=== PATIENT | female | born 1950 | race Caucasian/White ===

== ENCOUNTER 2017-08-17 21:20 | Emergency (ER) | payer MEDICARE ==
[2017-08-17] MEDS ORDERED: predniSONE 20 MG TAB ONE (21:39)
== END 2017-08-17 21:43 | disposition home or self-care (01) ==
LOC: SCSER 21:20
DX: L25.9 Unspecified contact dermatitis, unspecified cause (principal); E03.9 Hypothyroidism, unspecified
CPT/HCPCS: 99282; J7506

== ENCOUNTER 2019-05-04 14:25 | Outpatient (CLI) | payer MEDICARE ==
--- NOTE | 2019-05-04 15:04 | ULT ---
EXAM: Right lower extremity venous Doppler HISTORY: Painless right lower leg edema for 3 weeks. FINDINGS: Grayscale, color-flow, Doppler evaluation, spectral analysis of the right lower extremity venous stru ctures is performed with 2-D imaging. The right common femoral, superficial femoral, popliteal, posterior tibial, proximal greater saphenous and profunda femoral veins are imaged. There is normal luminal compressibility, flow, and augmentation in the visualized deep venous structu res of the right lower extremity. Mildly prominent nonspecific right inguinal lymph node is present measuring 4.3 cm x 1 cm x 1.7 cm. IMPRESSION: 1. No evidence of a deep vein thrombosis in the visualized deep venous structures right lower extremi ty. 2. Nonspecific mildly prominent right inguinal lymph node.
== END 2019-05-04 14:26 | disposition home or self-care (01) ==
LOC: ULT 14:25
PROVIDERS: ATTEND Internal Medicine
DX: R60.0 Localized edema (principal)
CPT/HCPCS: 36415; 84443

== ENCOUNTER 2019-08-17 13:43 | Outpatient (CLI) | payer MEDICARE ==
--- NOTE | 2019-08-17 15:09 | BD ---
DEXA BONE DENSITY STUDY: Date: 08/17/19 HISTORY: Postmenopausal screening. FINDINGS: Right Femoral Neck: 0.769 T-Score: -0.7 Total Femur: 0.937 T-Score: 0.0 Left Femoral Neck: 0.742 T-Score: -1.0 Total Femur: 0.951 T-Score: 0.1 IMPRESSION: Calculated bone mineral density meets WHO criteria for normal. POS: OFF
--- NOTE | 2019-09-14 14:35 | MMO ---
Bilateral MAMMO Bilat Screen [facility]. CLINICAL HISTORY: Patient is 69 years old and is seen for screening. The patient has no family history of breast cancer. The patient has no personal history of cancer. VIEWS: The views performed were: bilateral craniocaudal with tomosynthesis and bilateral mediolateral oblique with tomosynthesis. This study has been interpreted with the assistance of computer-aided detection. MAMMOGRAM FINDINGS: There are scattered fibroglandular densities. There are benign appearing calcifications seen in both breasts. No prior films were available for comparison. There are no suspicious masses, suspicious calcifications, or areas of architectural distortion. IMPRESSION: THERE IS NO MAMMOGRAPHIC EVIDENCE OF MALIGNANCY. A ROUTINE FOLLOW-UP MAMMOGRAM IN 1 YEAR IS RECOMMENDED. THE RESULTS OF THIS EXAM WERE SENT TO THE PATIENT. ACR BI-RADS Category 2 - Benign finding MAMMOGRAPHY NOTE: 1. A negative mammogram report should not delay a biopsy if a dominant of clinically suspicious mass is present. 2. Approximately 10% to 15% of breast cancers are not detected by mammography. 3. Adenosis and dense breasts may obscure an underlying neoplasm. Reported by: JEANMARIE ROJAS MD Electonically Signed: [id number]
== END 2019-08-17 13:44 | disposition home or self-care (01) ==
LOC: BICMAMMO 13:43
PROVIDERS: ATTEND Internal Medicine
DX: Z12.31 Encounter for screening mammogram for malignant neoplasm of breast (principal); Z13.820 Encounter for screening for osteoporosis; Z78.0 Asymptomatic menopausal state
CPT/HCPCS: 77063; 77067; 77080

== ENCOUNTER 2019-12-13 16:16 | Inpatient (IN) | payer MEDICARE ==
[2019-12-13 16:47] LABS: #Basophils 0.1 thou/uL (0.0-0.2); #Eosinphils 0.6 thou/uL (0.0-0.7); #Lymphocytes 2.3 thou/uL (1.20-3.40); #Monocytes 0.6 thou/uL (0.11-0.59); #Neutrophils 5.5 thou/uL (1.40-6.50); %Basophils 0.6 % (0.0-1.0); %Eosinophils 6.8 % (0.0-10.0); %Lymphocytes 25.1 % (21.0-51.0); %Monocytes 6.3 % (0.0-10.0); %Neutrophils 61.2 % (42.0-75.0); Hemoglobin 14.5 g/dL (12.0-16.0); Mean Corpuscular HGB CONC 34.6 g/dL (32.0-36.0); Mean Corpuscular Volume 89.4 fL (78.0-98.0); Mean Platelet Volume 7.9 fL (7.4-10.4); Platelet Count 168 thou/uL (130-400); RBC Distribution Width 11.7 % (11.5-14.5); Red Blood Cell (RBC) Count 4.69 mill/uL (4.20-5.40)
--- NOTE | 2019-12-13 17:05 | RAD ---
EXAM: CHEST ONE VIEW HISTORY: Chest pain with left arm numbness. COMPARISON: None FINDINGS: The cardiac silhouette and pulmonary vasculature is within normal limits. There is mild elevation rig ht hemidiaphragm. Lungs are clear. Right glenohumeral prosthesis is noted. Postsurgical changes lower cervical spine are seen. IMPRESSION: No acute cardiopulmonary process.
[2019-12-13] MEDS ORDERED: Aspirin Chewable 81 MG TAB ONE (17:14)
[2019-12-13] MEDS ORDERED: Nitroglycerin 2% Ointment 1 INCH/1 GM Packet ONE (17:14)
[2019-12-13 17:22] LABS: ALT (SGPT) 13 U/L (8-55); AST (SGOT) 17 U/L (5-34); Albumin 4.3 g/dL (3.4-4.8); Alkaline Phosphatase 130 U/L (40-110); Anion Gap 12 mmol/L (10-20); BUN (Urea Nitrogen) 8 mg/dL (9.8-20.1); Bilirubin, Total 0.5 mg/dL (0.2-1.2); Calc. Creatinine Clearance 0 mL/min (70-130); Calcium 9.5 mg/dL (7.8-10.44); Carbon Dioxide 30 mmol/L (23-31); Chloride 103 mmol/L (98-107); Estimated GFR-MDRD 69; Globulin 3.1 g/dL (2.4-3.5); Glucose 172 mg/dL (80-115); Potassium 3.7 mmol/L (3.5-5.1); Protein, Total 7.4 g/dL (6.0-8.3); Sodium 141 mmol/L (136-145)
[2019-12-13] MEDS ORDERED: Acetaminophen 650 MG Suppository PR PRN (19:58)
[2019-12-13] MEDS ORDERED: Nitroglycerin 0.4 MG TAB (25 Tab Bottle) PO PRN (20:01)
[2019-12-13 20:02] LABS: Troponin I 0.411 ng/mL (< 0.028)
[2019-12-13] MEDS ORDERED: Enoxaparin Sodium 60 MG/0.6 ML SYRINGE ONE (20:40)
[2019-12-13] MEDS ORDERED: Enoxaparin Sodium 80 MG/0.8 ML SYRINGE ONE (20:41)
[2019-12-13] MEDS ORDERED: Dextrose 5% in Water 1,000 ML IV PRN (20:45)
[2019-12-13] MEDS ORDERED: Dextrose 50% Abboject 50 ML SYRINGE SLOW IVP PRN (20:45)
[2019-12-13] MEDS ORDERED: HumaLOG 300 UNITS/3 ML VIAL SC PRN ×2 (20:45)
[2019-12-13] MEDS ORDERED: Dextrose 5 %-0.45 % NaCl 1,000 ML IV SCH (21:00)
[2019-12-13] MEDS: Enoxaparin Sodium 80 MG/0.8 ML SYRINGE SC SCH (22:34)
[2019-12-13] MEDS: Gabapentin 300 MG CAP PO SCH (22:35)
[2019-12-13] MEDS: Famotidine 20 MG TAB PO SCH (22:35)
[2019-12-13] MEDS: Morphine ER 30 MG TAB PO SCH (22:36)
[2019-12-13 23:20] LABS: CKMB 7.8 ng/mL (0-6.6)
[2019-12-14 05:17] LABS: #Eosinphils 0.5 thou/uL (0.0-0.7); #Lymphocytes 2.8 thou/uL (1.20-3.40); #Monocytes 0.6 thou/uL (0.11-0.59); #Neutrophils 5.3 thou/uL (1.40-6.50); %Basophils 0.5 % (0.0-1.0); %Eosinophils 5.5 % (0.0-10.0); %Lymphocytes 30.5 % (21.0-51.0); %Monocytes 6.6 % (0.0-10.0); Hemoglobin 12.3 g/dL (12.0-16.0); Mean Corpuscular HGB CONC 33.1 g/dL (32.0-36.0); Mean Corpuscular Hemoglobin 29.9 pg (27.0-31.0); Mean Corpuscular Volume 90.4 fL (78.0-98.0); Mean Platelet Volume 8.2 fL (7.4-10.4); Platelet Count 140 thou/uL (130-400); RBC Distribution Width 11.9 % (11.5-14.5); Red Blood Cell (RBC) Count 4.12 mill/uL (4.20-5.40); White Blood Cell (WBC) Count 9.2 thou/uL (4.8-10.8)
[2019-12-14 05:25] LABS: Anion Gap 10 mmol/L (10-20); BUN (Urea Nitrogen) 10 mg/dL (9.8-20.1); Calc. Creatinine Clearance 88 mL/min (70-130); Calcium 8.8 mg/dL (7.8-10.44); Carbon Dioxide 26 mmol/L (23-31); Cardiac Risk 3.5 (Less than 4.5); Chloride 106 mmol/L (98-107); Cholesterol 134 mg/dl (< 200 Desired); Estimated GFR-MDRD 79; Glucose 174 mg/dL (80-115); HDL Cholesterol 38 mg/dL (>60 Neg Risk); LDL Cholesterol, Calculated 66 mg/dL; Potassium 3.8 mmol/L (3.5-5.1); Sodium 138 mmol/L (136-145); Triglycerides 148 mg/dL (Less than 150)
[2019-12-14] MEDS: Acetaminophen 325 MG TAB PO PRN ×3 (06:24→22:12)
--- NOTE | 2019-12-14 07:33 | HP ---
TIME OF ASSESSMENT: 1899. CHIEF COMPLAINT: Central chest pain. HISTORY OF PRESENT ILLNESS: Ms. Barbour is a 69-year-old woman, who presents to the emergency department today with complaints of chest pain that came on suddenly after lunch. The patient states she was sitting down when it started and states it was in the center of her chest and toward the left of her chest, also noting aching in her left arm. She is unable to state exactly how severe the pain was, but states was not the worse pain she has ever felt. States it was squeezing in nature. It lasted approximately 15 minutes and then recurred 20 minutes after that with the same amount of intensity and lasted for nearly 3 hours. The patient states she took two aspirins when it first came on. She states on arrival to the emergency department here, she was given medications, which helped to take the pain completely away. Per ED reports, she was given 81 mg of aspirin and Nitro-Bid 1 inch. An EKG was done showing normal sinus rhythm with no ST changes or T-wave abnormalities and a heart rate of 72. The second EKG done in the emergency department 7 minutes later showed again no ST changes or T-wave abnormalities and a normal sinus rhythm with a rate of 70. The patient had a chest x-ray done, which was unremarkable. She has had laboratory studies done demonstrating a normal troponin of 0.013. White count 9.0, hemoglobin 14.5, hematocrit 41.9, platelets 168, neutrophils 61.2%. Sodium 141, potassium 3.7, BUN 8, creatinine 0.82, GFR 69. LFTs unremarkable. Alkaline phosphatase was elevated at 130. At present, the patient denies having any pain. She reports seeing Dr. Dixon in July of her routine visit and had a normal stress test as well as a normal echo. Dr. Dixon had told her at that time that she did not need to come back to see him. The patient reports never experiencing chest pain in the past. PAST MEDICAL HISTORY: 1. Peripheral neuropathy. 2. Hypothyroidism. 3. Chronic back pain. 4. Diabetes mellitus. 5. Diabetic Charcot's foot. SOCIAL HISTORY: The patient lives with her . She is fully independent and mobilizes without any assistive devices. She denies any smoking history and reports rare alcohol intake. PAST SURGICAL HISTORY: 1. x2. 2. Back surgery x3. 3. Cholecystectomy. ALLERGIES: BACTRIM DS, ERYTHROMYCIN, LODINE. CURRENT MEDICATIONS: 1. Levothyroxine. 2. Morphine. 3. Metformin. 4. Gabapentin. PHYSICAL EXAMINATION: GENERAL: The patient appears well developed, well nourished, and is in no acute distress. VITAL SIGNS: Temperature 98.2, pulse 75, blood pressure 151/92, respirations 18, O2 saturation 98% on room air. HEENT: Normocephalic and atraumatic. Pupils are equal, round, reactive to light. Sclerae without icterus. Oropharynx is clear. NECK: Supple without lymphadenopathy. LUNGS: Clear to auscultation bilaterally without any wheezes, rales, or rhonchi. CARDIAC: Regular rate and rhythm. No reproducible chest wall tenderness with palpation. ABDOMEN: Soft, nontender, nondistended. Normoactive bowel sounds present. No guarding or rigidity. No renal angle tenderness. EXTREMITIES: No lower extremity swelling or edema. Peripheral pulses normal. INVESTIGATIONS: As mentioned above in HPI. IMPRESSION AND PLAN: Ms. Barbour is a pleasant 69-year-old woman, presenting with chest pain, who is being admitted for management of the followin. Acute coronary syndrome rule out. We will continue to trend troponins. EKG was unremarkable. The patient remains pain free at this present time. We will check TSH, lipid panel with morning labs. We will add on magnesium and BNP. Per ED, case has been discussed with Dr. Dixon who will try to take care for catheterization on ; therefore, we will keep her n.p.o. starting tomorrow at midnight. The patient will remain on continuous cardiac monitoring. 2. Diabetes mellitus. Monitor glucose and initiate insulin sliding scale. 3. Hypothyroidism. Resume home medications once verified. 4. Chronic back pain. Resume home medications once verified. 5. Peripheral neuropathy. Resume gabapentin once dose verified. 6. Gastrointestinal prophylaxis with famotidine. 7. Deep venous thrombosis prophylaxis. The patient is ambulatory. 8. Code status, full. Surrogate decision maker is her , Mr. Jonn Barbour. The patient's case was discussed with Dr. Saldaña, who agrees with plan of care as described above. ADDENDUM: Second troponin has come back, elevated at 0.411. I have notified Dr. Dixon, who will try to take care for catheterization tomorrow. We will keep her n.p.oIvy lindsay. Job ID: [id number]
[2019-12-14] MEDS: Aspirin 81 mg Enteric Coated Tablet PO SCH (08:20)
[2019-12-14] MEDS: Gabapentin 300 MG CAP PO SCH ×3 (08:20→20:35)
[2019-12-14] MEDS: Famotidine 20 MG TAB PO SCH ×2 (08:20→20:35)
[2019-12-14] MEDS: Morphine ER 30 MG TAB PO SCH ×2 (08:20→20:35)
[2019-12-14] MEDS ORDERED: Communication Order-Pharmacy FS SCH (08:45)
[2019-12-14] MEDS ORDERED: Iopamidol 370 76% 100 ML VIAL ONE (09:05)
[2019-12-14] MEDS ORDERED: Lidocaine 1% (PF) 30 ML VIAL ONE (11:31)
[2019-12-14] MEDS ORDERED: Heparin (Artline) 1,000 ML ONE (11:31)
[2019-12-14] MEDS ORDERED: Midazolam HCl 2 mg/2 ml Vial ONE (12:11)
[2019-12-14] MEDS ORDERED: Fentanyl 100 MCG/2 ML VIAL ONE (12:11)
[2019-12-14] MEDS ORDERED: Heparin 10,000 UNITS/1 ML VIAL ONE (12:48)
[2019-12-14] MEDS ORDERED: Sodium Chloride 0.9% 500 ML IVPB SCH (15:00)
[2019-12-14] MEDS ORDERED: TICAGRELOR 90 MG TABLET ONE (15:00)
--- NOTE | 2019-12-14 17:11 | PDOC.HOSPP ---
- Subjective Encounter Date: 12/14/19 Encounter Time: 15:00 Subjective: pt up in bed no complains - Objective Vital Signs & Weight: Vital Signs (12 hours) Temp Pulse Resp BP Pulse Ox 12/14/19 16:02 97.2 F L 73 20 99 12/14/19 13:47 97.9 F 67 16 166/71 H 97 12/14/19 11:46 96 12/14/19 11:30 97.9 F 63 14 161/71 H 96 12/14/19 08:00 98 Weight Admit Weight 167 lb 11.2 oz Weight 168 lb 11.2 oz I&O: 12/13/19 12/14/19 12/15/19 06:59 06:59 06:59 Intake Total 530 Balance 530 Result Diagrams: 12/14/19 04:30 12/14/19 04:31 Additional Labs: Accuchecks 12/14/19 12/13/19 11:23 21:53 POC Glucose 142 H 181 H Hospitalist ROS - Review of Systems Cardiovascular: denies: chest pain, palpitations, orthopnea, paroxysmal noc. dyspnea, edema, light headedness, other Gastrointestinal: denies: nausea, vomiting, abdominal pain, diarrhea, constipation, melena, hematochezia, other Genitourinary: denies: dysuria, frequency, incontinence, hematuria, retention, other - Medication Medications: Active Medications Generic Name Dose Route Start Last Admin Trade Name Freq PRN Reason Stop Dose Admin Acetaminophen 650 mg 12/13/19 19:58 12/14/19 16:09 Tylenol PO 650 mg Q4H PRN Administration Headache/Fever/Mild Pain (1-3) Aspirin 81 mg 12/14/19 09:00 12/14/19 08:20 Ecotrin PO 81 mg DAILY HIGINIO Administration Famotidine 20 mg 12/13/19 21:00 12/14/19 08:20 Pepcid PO 20 mg BID HIGINIO Administration Gabapentin 300 mg 12/13/19 21:00 12/14/19 16:06 Neurontin PO 300 mg TID HIGINIO Administration Morphine Sulfate 30 mg 12/13/19 21:00 12/14/19 08:20 Ms Contin PO 30 mg Q12HR HIGINIO Administration - Exam Neck: negative: supple, symmetric, no JVD, no thyromegaly, no lymphadenopathy, no carotid bruit, JVD Heart: negative: RRR, no murmur, no gallops, no rubs, normal peripheral pulses, irregular, diminshed peripheral pulses, murmur present, II/IV, III/IV Respiratory: negative: CTAB, no wheezes, no rales, no ronchi, normal chest expansion, no tachypnea, normal percussion, rales, rhonchi, tachypneic, wheezes Gastrointestinal: negative: soft, non-tender, non-distended, normal bowel sounds , no palpable masses, no hepatomegaly, no splenomegaly, no bruit, no guarding, no rigidity, tender to palpation, distended, diminished bowl sounds, voluntary guarding Hosp A/P (1) NSTEMI (non-ST elevated myocardial infarction) Code(s): I21.4 - NON-ST ELEVATION (NSTEMI) MYOCARDIAL INFARCTION Status: Acute (2) HTN (hypertension) Code(s): I10 - ESSENTIAL (PRIMARY) HYPERTENSION Status: Acute (3) Diabetes Code(s): E11.9 - TYPE 2 DIABETES MELLITUS WITHOUT COMPLICATIONS Status: Acute - Plan pt underwent cardiac cath with angioplasty. will start her on brilinta. will hold metformin.
[2019-12-14] MEDS: Enoxaparin Sodium 80 MG/0.8 ML SYRINGE SC SCH (17:37)
--- NOTE | 2019-12-14 19:08 | CON ---
DATE OF CONSULTATION: 12/14/2019 REASON FOR CONSULTATION: Non-STEMI. HISTORY OF PRESENT ILLNESS: Ms. Barbour is a pleasant 69-year-old white female, very well known to myself, who comes to the hospital for chest pain. She had sudden onset of midsternal chest pain that radiated to the left arm. It lasted for about 3 hours. She decided to come in for evaluation. She states her pain was gone, but she had a lingering pressure, so she was admitted for rule out. First troponin was negative, but eventually it became positive. On my evaluation this morning, this is a late entry. She continued to have chest tightness. No pain though. Denies any shortness of breath. She did have a normal stress with an unremarkable echo just about 4 to 6 months ago. PAST MEDICAL HISTORY: 1. Peripheral neuropathy. 2. Hypothyroidism. 3. Chronic back pain. 4. Type 2 diabetes. 5. Charcot foot. SOCIAL HISTORY: The patient lives with her . No alcohol, tobacco, or drugs. She is a retired nurse. PAST SURGICAL HISTORY: 1. x2. 2. Back surgery x3. 3. Cholecystectomy. ALLERGIES: BACTRIM DS, ERYTHROMYCIN, AND LODINE. CURRENT OUTPATIENT MEDICATIONS: Include: 1. Metformin 500 mg q.p.m. 2. Singulair. 3. Tradjenta 5 mg a day. 4. Morphine IR tablet 30 daily p.r.n. 5. Gabapentin 200 mg p.o. t.i.d. 6. Morphine ER. 7. Ms Contin 60 mg b.i.d. 8. Levothyroxine 50 mcg a day. 9. Brilinta 90 mg p.o. b.i.d. REVIEW OF SYSTEMS: A 12-point review of systems was done and was all negative unless stated in the history of present illness. PHYSICAL EXAMINATION: VITAL SIGNS: Temperature 97.2, pulse 73, respiratory rate 20, saturating 99% on room air, and blood pressure 161/71. GENERAL: Awake, alert, and oriented x3, in no distress. HEENT: Normocephalic and atraumatic. NECK: Supple. LUNGS: Clear. CARDIOVASCULAR: S1 and S2. No S3 or S4. No murmurs or rubs. ABDOMEN: Soft. Positive bowel sounds. EXTREMITIES: No edema. SKIN: Warm and dry. LABORATORY DATA: Reviewed. CBC is unremarkable. Chemistries were unremarkable. Troponin went up to 0.9 with a CK-MB of 7.8, otherwise normal GFR. TSH was normal. LDL was 66. EKG was reviewed. ASSESSMENT: 1. Iok-[id number] myocardial infarction. 2. Type 2 diabetes. 3. Hypertension. PLAN: We spoke at length with the risks and benefits of heart catheterization, which is what I would recommend to proceed at this time. The risks included, but not limited to stroke, MA, , bleeding, need for blood transfusion, limb loss, organ loss. She understands, verbalized understanding of this and agrees to proceed. We have further recommendations per results of coronary angiogram. Job ID: [id number]
[2019-12-14] MEDS ORDERED: hydrALAZINE 20 MG/ML VIAL SLOW IVP SCH (19:45)
[2019-12-14] MEDS: Atorvastatin Calcium 10 MG TAB PO SCH (20:35)
[2019-12-14] MEDS: TICAGRELOR 90 MG TABLET PO SCH (20:36)
--- NOTE | 2019-12-14 22:09 | PDOC.EVN ---
Event Note - Event Note Event Note: Notified by RN, patient with elevated BP and complaining of SOB. Given Hydralazine 2 hours ago, BP initially improved and now elevated again to Patient seen & examined. She states she had one brief episode of palpitations. Reports occasional "Tightness in my diaphragm" area that makes it difficult for her to take a full breath. Has not had any tachypnea, no cough/hemoptysis. Has been walking today without difficulty. Denies any chest pain. At present she does not feel this tightness and is able to take full breaths without discomfort. Lungs are clear. No abdominal pain/tenderness. Abdomen is soft. RN discussed with Dr. Dixon who advised Clonidine 0.1 mg PO x 1, EKG and CXR. I have placed these orders. Will also request continuous O2 sat monitoring.
[2019-12-14] MEDS ORDERED: cloNIDine 0.1 MG TAB PO SCH (22:15)
--- NOTE | 2019-12-14 22:31 | RAD ---
XR Chest Pa Lat STANDARD History: Shortness of breath Comparison: Radiograph December 13, 2019 Findings: Lungs are clear. No pneumothorax or effusion. Cardiac silhouette and mediastinal contours a re within normal limits. Right shoulder arthroplasty. Left rotator cuff insufficiency. Impression: No acute intrathoracic abnormality.
[2019-12-15] MEDS: Levothyroxine Sodium 50 MCG TAB PO SCH (06:16)
[2019-12-15] MEDS: Famotidine 20 MG TAB PO SCH ×2 (08:20→20:35)
[2019-12-15] MEDS: Lisinopril 2.5 MG TAB PO SCH (08:21)
[2019-12-15] MEDS: Morphine ER 30 MG TAB PO SCH ×2 (08:21→20:35)
[2019-12-15] MEDS: Gabapentin 300 MG CAP PO SCH ×3 (08:21→20:37)
[2019-12-15] MEDS: TICAGRELOR 90 MG TABLET PO SCH ×2 (08:21→20:37)
[2019-12-15] MEDS: Aspirin 81 mg Enteric Coated Tablet PO SCH (08:21)
[2019-12-15] MEDS: Carvedilol 3.125 MG TAB PO SCH ×2 (08:21→17:09)
[2019-12-15 11:22] VITALS: BMI 30.4
--- NOTE | 2019-12-15 16:23 | PDOC.CPN ---
- Subjective Date: 12/15/19 Time: 16:22 Interval history: She is doing well. No more chest pain. - Review of Systems General: denies: fever/chills, weight/appetite/sleep changes, night sweats, fatigue Respiratory: denies: cough, congestion, shortness of breath, exercise intolerance Cardiovascular: denies: chest pain, palpitation, edema, paroxysmal nocturnal dyspnea, orthopnea Gastrointestinal: denies: nausea, vomiting, diarrhea, constipation, abd pain, GI bleeding Musculoskeletal: denies: pain, tenderness, stiffness, swelling, arthritis/ arthralgias Neurological: denies: numbness, syncope, seizure, weakness - Objective Allergies/Adverse Reactions: Allergies Allergy/AdvReac Type Severity Reaction Status Date / Time aspartame Allergy Verified 12/14/19 16:42 [From Nutrasweet Aspartame] erythromycin base Allergy Verified 12/13/19 22:18 etodolac Allergy Verified 12/13/19 22:18 sulfamethoxazole Allergy Verified 12/13/19 22:18 [From Bactrim] trimethoprim [From Bactrim] Allergy Verified 12/13/19 22:18 Visit Medications: Current Medications Acetaminophen (Tylenol) 650 mg PO Q4H PRN PRN Reason: Headache/Fever/Mild Pain (1-3) Last Admin: 12/14/19 22:12 Dose: 650 mg Acetaminophen (Tylenol) 650 mg DC Q4H PRN PRN Reason: Headache/Fever/Mild Pain (1-3) Aspirin (Ecotrin) 81 mg PO DAILY [facility] Last Admin: 12/15/19 08:21 Dose: 81 mg Atorvastatin Calcium (Lipitor) 10 mg PO HS [facility] Last Admin: 12/14/19 20:35 Dose: 10 mg Carvedilol (Coreg) 3.125 mg PO BID-[facility] Last Admin: 12/15/19 08:21 Dose: 3.125 mg Dextrose/Water (Dextrose 50%) 25 gm SLOW IVP PRN PRN PRN Reason: Hypoglycemia Famotidine (Pepcid) 20 mg PO BID [facility] Last Admin: 12/15/19 08:20 Dose: 20 mg Gabapentin (Neurontin) 300 mg PO TID [facility] Last Admin: 12/15/19 15:41 Dose: 300 mg Glucagon (Glucagon) 1 mg IM PRN PRN PRN Reason: Hypoglycemia Dextrose/Water (D5w) 1,000 mls @ 0 mls/hr IV .Q0M PRN PRN Reason: Hypoglycemia Levothyroxine Sodium (Synthroid) 50 mcg PO 0600 [facility] Last Admin: 12/15/19 06:16 Dose: 50 mcg Lisinopril (Zestril) 2.5 mg PO DAILY [facility] Last Admin: 12/15/19 08:21 Dose: 2.5 mg Morphine Sulfate (Ms Contin) 30 mg PO Q12HR [facility] Last Admin: 12/15/19 08:21 Dose: 30 mg Nitroglycerin (Nitrostat) 0.4 mg PO Q5MIN PRN PRN Reason: Chest Pain Sodium Chloride (Flush - Normal Saline) 10 ml IVF Q12HR PRN PRN Reason: Saline Flush Sodium Chloride (Flush - Normal Saline) 10 ml IVF PRN PRN PRN Reason: Saline Flush Ticagrelor (Brilinta) 90 mg PO BID [facility] Last Admin: 12/15/19 08:21 Dose: 90 mg Vital Signs & Weight: Vital Signs Temp Pulse Resp BP BP Pulse Ox 12/15/19 16:00 98.4 F 76 18 120/60 96 12/15/19 11:29 98.2 F 68 18 137/60 99 12/15/19 08:21 67 12/15/19 07:23 97.9 F 67 18 147/74 H 97 Admit Weight 167 lb 11.2 oz Weight 166 lb 12.8 oz - Physical Exam General: alert & oriented x3 HEENT: mucus membranes moist Neck: supple neck Cardiac: regular rate and rhythm Lungs: normal breath sounds Neuro: grossly intact Abdomen: active bowel sounds Extremities: no edema Skin: clear Musculoskeletal: no pain - Labs Result Diagrams: 12/14/19 04:30 12/14/19 04:31 Troponin/CKMB CK-MB (CK-2) 7.8 ng/mL (0-6.6) H* 12/13/19 22:20 Troponin I 0.942 ng/mL (< 0.028) H* 12/13/19 22:20 - Telemetry Sinus rhythms and dysrhythmias: sinus rhythm - Assessment/Plan Assessment/Plan: 1. NSTEMI 2. S/P balloon angioplasty of a large first septal running parallel to the LAD. 3. Type 2 DM 4. HTN PLAN: - Continue MARCEL for now. - Statin for life. - BB and ACEI. - Echo pending. - Home tomorrow if remains stable.
--- NOTE | 2019-12-15 16:41 | PDOC.HOSPP ---
- Subjective Encounter Date: 12/15/19 Encounter Time: 10:30 Subjective: pt up in bed no complains. - Objective Vital Signs & Weight: Vital Signs (12 hours) Temp Pulse Resp BP BP Pulse Ox 12/15/19 16:00 98.4 F 76 18 120/60 96 12/15/19 11:29 98.2 F 68 18 137/60 99 12/15/19 08:21 67 12/15/19 07:23 97.9 F 67 18 147/74 H 97 Weight Admit Weight 167 lb 11.2 oz Weight 166 lb 12.8 oz I&O: 12/14/19 12/15/19 12/16/19 06:59 06:59 06:59 Intake Total 530 480 Output Total 850 Balance 530 -370 Result Diagrams: 12/14/19 04:30 12/14/19 04:31 Additional Labs: Accuchecks 12/15/19 12/15/19 12/15/19 16:00 13:34 11:14 POC Glucose 149 H 168 H 230 H 12/15/19 12/14/19 12/14/19 06:21 20:40 18:12 POC Glucose 141 H 168 H 133 H Hospitalist ROS - Review of Systems Respiratory: denies: cough, dry, shortness of breath, hemoptysis, SOB with excertion, pleuritic pain, sputum, wheezing, other Cardiovascular: denies: chest pain, palpitations, orthopnea, paroxysmal noc. dyspnea, edema, light headedness, other Gastrointestinal: denies: nausea, vomiting, abdominal pain, diarrhea, constipation, melena, hematochezia, other Genitourinary: denies: dysuria, frequency, incontinence, hematuria, retention, other - Medication Medications: Active Medications Generic Name Dose Route Start Last Admin Trade Name Freq PRN Reason Stop Dose Admin Acetaminophen 650 mg 12/13/19 19:58 12/14/19 22:12 Tylenol PO 650 mg Q4H PRN Administration Headache/Fever/Mild Pain (1-3) Aspirin 81 mg 12/14/19 09:00 12/15/19 08:21 Ecotrin PO 81 mg DAILY HIGINIO Administration Atorvastatin Calcium 10 mg 12/14/19 21:00 12/14/19 20:35 Lipitor PO 10 mg HS HIGINIO Administration Carvedilol 3.125 mg 12/15/19 08:00 12/15/19 08:21 Coreg PO 3.125 mg BID-[facility] HIGINIO Administration Famotidine 20 mg 12/13/19 21:00 12/15/19 08:20 Pepcid PO 20 mg BID HIGINIO Administration Gabapentin 300 mg 12/13/19 21:00 12/15/19 15:41 Neurontin PO 300 mg TID HIGINIO Administration Levothyroxine Sodium 50 mcg 12/15/19 06:00 12/15/19 06:16 Synthroid PO 50 mcg 0600 HIGINIO Administration Lisinopril 2.5 mg 12/15/19 09:00 12/15/19 08:21 Zestril PO 2.5 mg DAILY HIGINIO Administration Morphine Sulfate 30 mg 12/13/19 21:00 12/15/19 08:21 Ms Contin PO 30 mg Q12HR HIGINIO Administration Ticagrelor 90 mg 12/14/19 21:00 12/15/19 08:21 Brilinta PO 90 mg BID HIGINIO Administration - Exam Neck: negative: supple, symmetric, no JVD, no thyromegaly, no lymphadenopathy, no carotid bruit, JVD Heart: negative: RRR, no murmur, no gallops, no rubs, normal peripheral pulses, irregular, diminshed peripheral pulses, murmur present, II/IV, III/IV Respiratory: negative: CTAB, no wheezes, no rales, no ronchi, normal chest expansion, no tachypnea, normal percussion, rales, rhonchi, tachypneic, wheezes Gastrointestinal: negative: soft, non-tender, non-distended, normal bowel sounds , no palpable masses, no hepatomegaly, no splenomegaly, no bruit, no guarding, no rigidity, tender to palpation, distended, diminished bowl sounds, voluntary guarding Hosp A/P (1) NSTEMI (non-ST elevated myocardial infarction) Code(s): I21.4 - NON-ST ELEVATION (NSTEMI) MYOCARDIAL INFARCTION Status: Acute (2) HTN (hypertension) Code(s): I10 - ESSENTIAL (PRIMARY) HYPERTENSION Status: Acute (3) Diabetes Code(s): E11.9 - TYPE 2 DIABETES MELLITUS WITHOUT COMPLICATIONS Status: Acute - Plan pt underwent cardiac cath with angioplasty. will start her on brilinta. will hold metformin. 2/6 pt had elevated bp last night and clonidine was given. pt to stay for 48hour post cath.
[2019-12-15] MEDS: Atorvastatin Calcium 10 MG TAB PO SCH (20:35)
[2019-12-16] MEDS: Levothyroxine Sodium 50 MCG TAB PO SCH (05:22)
[2019-12-16] MEDS: Lisinopril 2.5 MG TAB PO SCH (07:49)
[2019-12-16] MEDS: Carvedilol 3.125 MG TAB PO SCH (07:50)
[2019-12-16] MEDS: Famotidine 20 MG TAB PO SCH (07:50)
[2019-12-16] MEDS: TICAGRELOR 90 MG TABLET PO SCH (07:50)
[2019-12-16] MEDS: Gabapentin 300 MG CAP PO SCH (07:50)
[2019-12-16] MEDS: Morphine ER 30 MG TAB PO SCH (07:50)
[2019-12-16] MEDS: Aspirin 81 mg Enteric Coated Tablet PO SCH (07:51)
[2019-12-16 12:00] VITALS: BP 142/70; TEMP 97.5
--- NOTE | 2019-12-17 03:07 | DIS ---
DATE OF ADMISSION: 12/13/2019 DATE OF DISCHARGE: 12/16/2019 DISCHARGE DIAGNOSES: As of the followin. Hpe-[id number] elevation myocardial infarction. 2. Hypertension. 3. Diabetes. HOSPITAL COURSE: Patient is a pleasant 69-year-old female who initially presented to the hospital with chest pain. At this time, her troponins were trended which did indicate NSTEMI. She was put on subcu Lovenox, underwent a cardiac catheterization. She underwent a balloon angioplasty to the ostium of the septal detective chief with a 2.0 x 8 mm compliant balloon. Patient did have a large first septal detective chief which gives a large intramyocardial branch giving out several more septals, which is a little bit different than the normal anatomy. Given the area where the stenosis was, putting in a stent would cause collapse given that it was in between the myocardium. At this time, only angioplasty was done. Patient will go home with aspirin and Plavix. She was monitored for 48 hours. No events. She had a repeat echocardiogram which indicated an EF of 50% to 55%. with anteroseptal hypokinesis, mild dilated left atrium. Patient was seen by Cardiology who recommended the patient to follow up as an outpatient and patient to be discharged. She is currently symptoms-free. DISCHARGE MEDICATIONS: She will continue home 1. Aspirin 81 mg. 2. Plavix 75 mg. 3. Atorvastatin 10 mg. 4. Coreg 3.125 b.i.d. 5. Lisinopril 2.5 daily. 6. Levothyroxine 50 mcg daily. 7. Morphine 60 mg b.i.d. 8. Neurontin 300 mg t.i.d. 9. Tradjenta 5 mg q.a.m. 10. Singulair 10 mg daily p.r.n. 11. Also, Glucophage 500 mg p.o. daily. PHYSICAL EXAMINATION: VITAL SIGNS: Temperature 98.5, 63, 16, 98% on room air, and 135/67. GENERAL: She is awake, alert, and oriented x3. Does not appear in distress. CV: S1, S2 present. No murmurs, rubs, or gallops. Again, she will be discharged home. She will follow up with her primary and Cardiology. Job ID: [id number]
== END 2019-12-16 13:34 | disposition home or self-care (01) | DRG 251 ==
LOC: ERS 16:16 → INTOOBSV 18:19 → OBSVTOIN 18:19 → 2SW 18:19
PROVIDERS: ADMIT Emergency Medicine; ATTEND Emergency Medicine
PROC: 4A023N7 Measurement of Cardiac Sampling and Pressure, Left Heart, Percutaneous Approach (ICD-10-PCS; principal; 2019-12-14)
PROC: 02703ZZ Dilation of Coronary Artery, One Artery, Percutaneous Approach (ICD-10-PCS; 2019-12-14)
PROC: B2111ZZ Fluoroscopy of Multiple Coronary Arteries using Low Osmolar Contrast (ICD-10-PCS; 2019-12-14)
PROC: B2151ZZ Fluoroscopy of Left Heart using Low Osmolar Contrast (ICD-10-PCS; 2019-12-14)
DX: I21.4 Non-ST elevation (NSTEMI) myocardial infarction (principal); I10 Essential (primary) hypertension; E03.9 Hypothyroidism, unspecified; E11.42 Type 2 diabetes mellitus with diabetic polyneuropathy; M54.9 Dorsalgia, unspecified; G89.29 Other chronic pain; Z90.49 Acquired absence of other specified parts of digestive tract; Z98.890 Other specified postprocedural states; Z88.1 Allergy status to other antibiotic agents
CPT/HCPCS: 36415; 36416; 71045; 71046; 80048; 80053; 80061; 82553; 83735; 83880; 84443; 84484; 85025; 85347; 92920; 93005; 93010; 93306; 93458; 94760; 96372; 99152; 99153; C1725; C1760; C1769; J0360; J1644; J1650; J2001; J2250; J3010; Q9967

== ENCOUNTER 2020-03-09 12:30 | Outpatient (CLI) | payer MEDICARE ==
--- NOTE | 2020-03-09 13:13 | RAD ---
RADIOGRAPH LUMBAR SPINE 3 VIEWS: DATE: 03/09/2020 HISTORY: 69-year-old female with low back pain. COMPARISON: None FINDINGS: 5 lumbar-type vertebrae. Vertebral body heights are maintained. No spondylolisthesis or scoliosis. Cy lindrical metallic cages, 2 at each level, at L3-4 and L4-5. Laminectomy defect at L4-5 and possibly at L5-S1. Other than L3-4 and L4-5, no high-grade disc space narrowing. Endplate marginal os teophytes protruding anteriorly at L2-3. Probable ankylosis of facet joints from L3 through S1. Cluster of multiple surgical clips in the retroperitoneum anterior to mid and lower levels. IMPRESSION: 1. Status post laminectomies, posterior element fusion, and metallic Cage placement, at mid and lower levels. 2. At least mild degenerative disc changes at L2-3 and L5-S1.
--- NOTE | 2020-03-09 14:17 | MRI ---
MRI LUMBAR SPINE WITH AND WITHOUT CONTRAST: DATE: 03/09/2020 HISTORY: 69-year-old female with chronic low back pain COMPARISON: None TECHNIQUE: Multiple sequences obtained in axial and sagittal planes, pre and post IV injection of gadolinium-bas ed contrast agent. FINDINGS: 5 lumbar-type vertebrae. Vertebral body heights are maintained. Magnetic susceptibility artifact from metallic hardware within the L3-4 and L4-5 intervertebral disc spaces interferes with evaluation of bone marrow signal at L3, L4, and L5, especially the fat suppressed postcontrast images. No obviou s bone marrow signal abnormality identified on STIR sequence. No spondylolisthesis or high-grade scoliosis. No disc space narrowing other than L3-4 level. Conus medullaris terminates at approximatel y L1-2. There is no significant central spinal canal stenosis or significant neural foraminal stenosis at any level. Old decompressive laminectomy defects at L3-4 and L4-5. Successful ankylosis o f bilateral facet joints at those same levels. No evidence of impingement on nerve roots. Atrophy of bilateral posterior paraspinal muscles at lower lumbar spine and sacrum. IMPRESSION: 1. Multiple postsurgical changes, including status post laminectomies, bilateral posterior element on lay bone graft fusions (with successful ankylosis), and metallic interbody cage placement, at L3-4 and L4-5. 2. No significant central spinal canal stenosis, neural foraminal stenosis, or nerve root impingement at any level.
== END 2020-03-09 12:31 | disposition home or self-care (01) ==
LOC: SCSMRI 12:30
PROVIDERS: ATTEND Pain Medicine Pain Medicine
DX: M96.1 Postlaminectomy syndrome, not elsewhere classified (principal); M51.17 Intervertebral disc disorders with radiculopathy, lumbosacral region; G89.4 Chronic pain syndrome; M51.36 Other intervertebral disc degeneration, lumbar region; Z98.1 Arthrodesis status
CPT/HCPCS: 72100; 72158; 82565

== ENCOUNTER 2021-04-12 14:36 | Outpatient (CLI) | payer MEDICARE | END 2021-04-12 14:37 | disposition home or self-care (01) | LOC: BICMAMMO 14:36 | PROVIDERS: ATTEND Internal Medicine | DX: Z12.31 Encounter for screening mammogram for malignant neoplasm of breast (principal) | CPT/HCPCS: 77063; 77067 ==

== ENCOUNTER 2021-09-27 06:33 | Observation (INO) | payer MEDICARE ==
[2021-09-27] MEDS ORDERED: Nitroglycerin 2% Ointment 1 INCH/1 GM Packet ONE (06:59)
[2021-09-27 07:00] LABS: #Basophils 0.1 thou/uL (0.0-0.2); #Eosinphils 0.4 thou/uL (0.0-0.7); #Lymphocytes 2.5 thou/uL (1.20-3.40); #Monocytes 0.6 thou/uL (0.11-0.59); #Neutrophils 6.1 thou/uL (1.40-6.50); %Basophils 0.7 % (0.0-1.0); %Lymphocytes 25.6 % (21.0-51.0); %Monocytes 6.4 % (0.0-10.0); %Neutrophils 63.2 % (42.0-75.0); Hemoglobin 13.2 g/dL (12.0-16.0); Mean Corpuscular HGB CONC 34.6 g/dL (32.0-36.0); Mean Corpuscular Hemoglobin 32.1 pg (27.0-31.0); Mean Corpuscular Volume 92.7 fL (78.0-98.0); Platelet Count 140 thou/uL (130-400); RBC Distribution Width 12.8 % (11.5-14.5); Red Blood Cell (RBC) Count 4.13 mill/uL (4.20-5.40); White Blood Cell (WBC) Count 9.6 thou/uL (4.8-10.8)
[2021-09-27 07:26] LABS: ALT (SGPT) 12 U/L (8-55); AST (SGOT) 14 U/L (5-34); Albumin 3.7 g/dL (3.4-4.8); Alkaline Phosphatase 96 U/L (40-110); Anion Gap 10 mmol/L (10-20); BUN (Urea Nitrogen) 12 mg/dL (9.8-20.1); Bilirubin, Total 0.5 mg/dL (0.2-1.2); Calc. Creatinine Clearance 0 mL/min (70-130); Calcium 9.5 mg/dL (7.8-10.44); Carbon Dioxide 32 mmol/L (23-31); Chloride 97 mmol/L (98-107); Globulin 2.9 g/dL (2.4-3.5); Glucose 151 mg/dL (83-110); Lipase 8 U/L (8-78); Potassium 3.9 mmol/L (3.5-5.1); Protein, Total 6.6 g/dL (5.8-8.1); Sodium 135 mmol/L (136-145)
[2021-09-27] MEDS ORDERED: Morphine 4 MG/ML VIAL ONE (08:14)
[2021-09-27] MEDS ORDERED: Lidocaine Viscous Sol 2% 15 ml UD Cup ONE (08:36)
[2021-09-27] MEDS ORDERED: Mag-Al 1200 mg/1200 mg/30 ML UDCUP ONE (08:36)
[2021-09-27] MEDS ORDERED: Acetaminophen 325 MG TAB PO PRN (09:02)
[2021-09-27] MEDS ORDERED: Ondansetron ODT 4 MG TAB PO PRN (09:02)
[2021-09-27] MEDS ORDERED: Acetaminophen 650 MG Suppository PR PRN (09:02)
[2021-09-27] MEDS ORDERED: Ondansetron PF 4 MG/2 ML Vial IVP PRN (09:02)
[2021-09-27] MEDS ORDERED: Dextrose 5% in Water 1,000 ML IV PRN (09:14)
[2021-09-27] MEDS ORDERED: Dextrose 50% Abboject 50 ML SYRINGE SLOW IVP PRN (09:14)
[2021-09-27] MEDS ORDERED: Insulin Regular 300 UNITS/3 ML VIAL SC PRN ×2 (09:14)
[2021-09-27 14:51] VITALS: BMI 32.9
[2021-09-27] MEDS: Nitroglycerin 2% Ointment 1 INCH/1 GM Packet TOP SCH ×2 (15:06→21:27)
[2021-09-27 19:33] LABS: Troponin I Less than 0.010 ng/mL (< 0.028)
[2021-09-27 19:44] LABS: SARS-CoV-2 PCR by NAA Not Detected (NotDetected)
[2021-09-27] MEDS: Atorvastatin Calcium 10 MG TAB PO SCH (20:09)
[2021-09-27] MEDS: Gabapentin 300 MG CAP PO SCH (20:10)
[2021-09-28 05:05] LABS: #Eosinphils 0.3 thou/uL (0.0-0.7); #Lymphocytes 1.9 thou/uL (1.20-3.40); #Monocytes 0.5 thou/uL (0.11-0.59); #Neutrophils 4.5 thou/uL (1.40-6.50); %Basophils 0.4 % (0.0-1.0); %Eosinophils 4.3 % (0.0-10.0); %Lymphocytes 26.4 % (21.0-51.0); %Monocytes 6.8 % (0.0-10.0); %Neutrophils 62.1 % (42.0-75.0); Hemoglobin 12.6 g/dL (12.0-16.0); Mean Corpuscular HGB CONC 34.4 g/dL (32.0-36.0); Mean Corpuscular Volume 93.2 fL (78.0-98.0); Mean Platelet Volume 6.9 fL (7.4-10.4); Platelet Count 125 thou/uL (130-400); RBC Distribution Width 12.7 % (11.5-14.5); Red Blood Cell (RBC) Count 3.93 mill/uL (4.20-5.40); White Blood Cell (WBC) Count 7.2 thou/uL (4.8-10.8)
[2021-09-28 05:29] LABS: Anion Gap 8 mmol/L (10-20); BUN (Urea Nitrogen) 12 mg/dL (9.8-20.1); Calc. Creatinine Clearance 90 mL/min (70-130); Calcium 9.3 mg/dL (7.8-10.44); Carbon Dioxide 31 mmol/L (23-31); Cardiac Risk 3.3 (Less than 4.5); Chloride 104 mmol/L (98-107); Cholesterol 151 mg/dl (< 200 Desired); Glucose 120 mg/dL (83-110); HDL Cholesterol 46 mg/dL (>60 Neg Risk); LDL Cholesterol, Calculated 90 mg/dL; Sodium 139 mmol/L (136-145); Triglycerides 75 mg/dL (Less than 150)
[2021-09-28] MEDS: Nitroglycerin 2% Ointment 1 INCH/1 GM Packet TOP SCH (05:31)
[2021-09-28] MEDS: Levothyroxine Sodium 50 MCG TAB PO SCH (05:31)
[2021-09-28] MEDS: Aspirin Chewable 81 MG TAB PO SCH (07:56)
[2021-09-28] MEDS: Clopidogrel Bisulfate 75 MG TAB PO SCH (07:56)
[2021-09-28] MEDS: Carvedilol 3.125 MG TAB PO SCH ×2 (07:56→16:48)
[2021-09-28] MEDS: Gabapentin 300 MG CAP PO SCH ×3 (07:57→20:20)
[2021-09-28] MEDS ORDERED: Morphine 2 MG/ML VIAL SLOW IVP PRN (08:07)
[2021-09-28] MEDS: Morphine ER 30 MG TAB PO SCH ×2 (08:47→21:20)
[2021-09-28] MEDS ORDERED: FLU VACC QS2021-22(65YR UP)/PF 240 MCG/0.7 ML SYRINGE IM ONE (09:00)
[2021-09-28] MEDS: Senokot S 8.6-50 MG TAB PO SCH (20:20)
[2021-09-28] MEDS: Atorvastatin Calcium 10 MG TAB PO SCH (20:20)
[2021-09-29 04:41] LABS: #Eosinphils 0.4 thou/uL (0.0-0.7); #Lymphocytes 2.4 thou/uL (1.20-3.40); #Monocytes 0.8 thou/uL (0.11-0.59); #Neutrophils 6.5 thou/uL (1.40-6.50); %Basophils 0.3 % (0.0-1.0); %Eosinophils 3.9 % (0.0-10.0); %Lymphocytes 23.6 % (21.0-51.0); %Monocytes 8.1 % (0.0-10.0); Mean Corpuscular HGB CONC 33.3 g/dL (32.0-36.0); Mean Corpuscular Volume 93.1 fL (78.0-98.0); Mean Platelet Volume 7.2 fL (7.4-10.4); Platelet Count 136 thou/uL (130-400); RBC Distribution Width 12.7 % (11.5-14.5); White Blood Cell (WBC) Count 10.1 thou/uL (4.8-10.8)
[2021-09-29 04:56] LABS: Anion Gap 10 mmol/L (10-20); BUN (Urea Nitrogen) 16 mg/dL (9.8-20.1); Calc. Creatinine Clearance 78 mL/min (70-130); Calcium 9.8 mg/dL (7.8-10.44); Carbon Dioxide 32 mmol/L (23-31); Chloride 102 mmol/L (98-107); Glucose 140 mg/dL (83-110); Potassium 4.7 mmol/L (3.5-5.1); Sodium 139 mmol/L (136-145)
[2021-09-29] MEDS: Levothyroxine Sodium 50 MCG TAB PO SCH (05:25)
[2021-09-29] MEDS: Morphine ER 30 MG TAB PO SCH (08:06)
[2021-09-29] MEDS: Gabapentin 300 MG CAP PO SCH ×2 (08:09→11:42)
[2021-09-29 11:30] VITALS: BP 123/63; TEMP 97.9
[2021-09-29] MEDS: Clopidogrel Bisulfate 75 MG TAB PO SCH (11:42)
[2021-09-29] MEDS: Aspirin Chewable 81 MG TAB PO SCH (11:42)
[2021-09-29] MEDS: Carvedilol 3.125 MG TAB PO SCH (11:42)
[2021-09-29] MEDS: Senokot S 8.6-50 MG TAB PO SCH (11:43)
[2021-09-29] MEDS ORDERED: Regadenoson 0.4 MG/5 ML SYRINGE ONE (12:05)
== END 2021-09-29 13:58 | disposition home or self-care (01) ==
LOC: ERS 06:33 → ERHOLD 08:27 → 2SW 14:38
PROVIDERS: ADMIT Hospitalist; ATTEND Internal Medicine
DX: R07.89 Other chest pain (principal); I25.10 Atherosclerotic heart disease of native coronary artery without angina pectoris; E78.5 Hyperlipidemia, unspecified; I12.9 Hypertensive chronic kidney disease with stage 1 through stage 4 chronic kidney disease, or unspecified chronic kidney disease; E11.22 Type 2 diabetes mellitus with diabetic chronic kidney disease; N18.2 Chronic kidney disease, stage 2 (mild); G89.4 Chronic pain syndrome; E03.9 Hypothyroidism, unspecified; J45.20 Mild intermittent asthma, uncomplicated; I25.2 Old myocardial infarction; Z20.822 Contact with and (suspected) exposure to COVID-19; Z88.1 Allergy status to other antibiotic agents; Z88.2 Allergy status to sulfonamides; Z88.6 Allergy status to analgesic agent; Z91.02 Food additives allergy status; Z95.5 Presence of coronary angioplasty implant and graft; Z98.890 Other specified postprocedural states; Z79.84 Long term (current) use of oral hypoglycemic drugs; Z79.82 Long term (current) use of aspirin; Z79.02 Long term (current) use of antithrombotics/antiplatelets; Z79.891 Long term (current) use of opiate analgesic; Z79.899 Other long term (current) drug therapy; Z90.49 Acquired absence of other specified parts of digestive tract; Z90.710 Acquired absence of both cervix and uterus
CPT/HCPCS: 71045; 78452; 80048 ×2; 80053; 80061; 82962 ×3; 83690; 84484 ×2; 85025 ×3; 90662; 93005; 93017; 94760; 96374; 99285; A9500; G0008; U0003; U0005; 36415; 36416; 90471; G0378; J2270; J2785

== ENCOUNTER 2021-10-15 17:14 | Outpatient (CLI) | payer MEDICARE ==
[2021-10-15 17:47] LABS: #Basophils 0.1 10x3/uL (0.0-0.2); #Eosinphils 0.6 10x3/uL (0.0-0.5); #Monocytes 0.8 10x3/uL (0.0-1.1); #Neutrophils 7.2 10x3/uL (1.5-8.4); %Basophils 0.6 % (0.0-2.0); %Eosinophils 5.6 % (0.0-6.0); %Monocytes 6.9 % (0.0-10.0); %Neutrophils 64.5 % (40.0-75.0); Hemoglobin 13.2 g/dL (12.0-15.5); Mean Corpuscular HGB CONC 33.7 g/dL (32.0-36.0); Mean Corpuscular Hemoglobin 31.4 pg (27.0-33.0); Mean Corpuscular Volume 93.1 fl (81.6-98.3); Mean Platelet Volume 9.6 fl (7.4-10.4); Platelet Count 182 10x3/uL (150-450); RBC Distribution Width 13.6 % (11.5-14.5); Red Blood Cell (RBC) Count 4.21 10x6/uL (3.90-5.03); White Blood Cell (WBC) Count 11.2 10x3/uL (3.5-10.5)
[2021-10-15 17:58] LABS: ALT (SGPT) 12 U/L (8-55); AST (SGOT) 15 U/L (5-34); Albumin 4.3 g/dL (3.4-4.8); Alkaline Phosphatase 95 U/L (40-110); Anion Gap 12 mmol/L (10-20); BUN (Urea Nitrogen) 12 mg/dL (9.8-20.1); Bilirubin, Total 0.8 mg/dL (0.2-1.2); Calc. Creatinine Clearance 0 mL/min (70-130); Calcium 9.4 mg/dL (7.8-10.44); Carbon Dioxide 30 mmol/L (23-31); Chloride 103 mmol/L (98-107); Globulin 2.6 g/dL (2.4-3.5); Glucose 133 mg/dL (83-110); Potassium 4.6 mmol/L (3.5-5.1); Protein, Total 6.9 g/dL (5.8-8.1); Sodium 140 mmol/L (136-145)
[2021-10-16 11:27] LABS: SARS-CoV-2 PCR by NAA Not Detected (NotDetected)
== END 2021-10-15 17:15 | disposition home or self-care (01) ==
LOC: LABBT 17:14
PROVIDERS: ATTEND Internal Medicine Cardiovascular Disease
DX: Z01.812 Encounter for preprocedural laboratory examination (principal); R07.9 Chest pain, unspecified; Z20.822 Contact with and (suspected) exposure to COVID-19
CPT/HCPCS: 80053; 85025; U0003; U0005

== ENCOUNTER 2021-10-18 06:17 | Day surgery (SDC) | payer MEDICARE ==
[2021-10-17 11:21] VITALS: BMI 29.2
[2021-10-18 07:15] LABS: Cardiac Risk 2.8 (Less than 4.5)
[2021-10-18] MEDS ORDERED: Fentanyl 100 MCG/2 ML VIAL ONE (07:35)
[2021-10-18] MEDS ORDERED: Midazolam HCl 2 mg/2 ml Vial ONE (07:35)
[2021-10-18] MEDS ORDERED: Heparin 10,000 UNITS/ 10 ML VIAL ONE (08:19)
[2021-10-18] MEDS ORDERED: TICAGRELOR 90 MG TABLET ONE (08:46)
[2021-10-18] MEDS ORDERED: Iopamidol 370 76% 100 ML VIAL ONE (09:00)
[2021-10-18] MEDS ORDERED: Iopamidol 370 76% 50 ML VIAL FS ONE (09:00)
[2021-10-18] MEDS ORDERED: Morphine 4 MG/ML VIAL ONE (09:21)
== END 2021-10-18 14:26 | disposition home or self-care (01) ==
LOC: CCL 06:17
PROVIDERS: ATTEND Internal Medicine Cardiovascular Disease
PROC: 027034Z Dilation of Coronary Artery, One Artery with Drug-eluting Intraluminal Device, Percutaneous Approach (ICD-10-PCS; principal; 2021-10-18)
PROC: 4A023N7 Measurement of Cardiac Sampling and Pressure, Left Heart, Percutaneous Approach (ICD-10-PCS; 2021-10-18)
PROC: B2111ZZ Fluoroscopy of Multiple Coronary Arteries using Low Osmolar Contrast (ICD-10-PCS; 2021-10-18)
DX: R07.9 Chest pain, unspecified (principal); I25.10 Atherosclerotic heart disease of native coronary artery without angina pectoris; I25.2 Old myocardial infarction; I10 Essential (primary) hypertension; E11.610 Type 2 diabetes mellitus with diabetic neuropathic arthropathy; M79.7 Fibromyalgia; E03.9 Hypothyroidism, unspecified; E11.42 Type 2 diabetes mellitus with diabetic polyneuropathy; Z79.02 Long term (current) use of antithrombotics/antiplatelets; Z79.82 Long term (current) use of aspirin; Z79.84 Long term (current) use of oral hypoglycemic drugs; Z79.891 Long term (current) use of opiate analgesic; Z79.899 Other long term (current) drug therapy; Z88.1 Allergy status to other antibiotic agents; Z88.2 Allergy status to sulfonamides; Z88.6 Allergy status to analgesic agent; Z91.02 Food additives allergy status; Z91.048 Other nonmedicinal substance allergy status; Z98.1 Arthrodesis status
CPT/HCPCS: 36415; 80061; 85347; 92928; 93005; 93454; 99152; 99153; C1769; C9600; J1644; J2250; J2270; J3010; Q9967

== ENCOUNTER 2022-02-13 11:53 | Outpatient (CLI) | payer MEDICARE | END 2022-02-13 11:54 | disposition home or self-care (01) | LOC: SCSRAD 11:53 | PROVIDERS: ATTEND Nurse Practitioner Family | DX: M46.1 Sacroiliitis, not elsewhere classified (principal); M17.12 Unilateral primary osteoarthritis, left knee; M47.818 Spondylosis without myelopathy or radiculopathy, sacral and sacrococcygeal region | CPT/HCPCS: 72170 ==

== ENCOUNTER 2022-10-10 10:30 | Outpatient (CLI) | payer MEDICARE ==
[2022-10-10 11:50] LABS: #Basophils 0.1 10x3/uL (0.0-0.2); #Eosinphils 0.8 10x3/uL (0.0-0.5); #Monocytes 0.7 10x3/uL (0.0-1.1); #Neutrophils 6.5 10x3/uL (1.5-8.4); %Basophils 0.5 % (0.0-2.0); %Eosinophils 8.3 % (0.0-6.0); %Monocytes 7.3 % (0.0-10.0); %Neutrophils 65.6 % (40.0-75.0); Mean Corpuscular HGB CONC 34.4 g/dL (32.0-36.0); Mean Corpuscular Hemoglobin 30.7 pg (27.0-33.0); Mean Corpuscular Volume 89.2 fl (81.6-98.3); Mean Platelet Volume 9.5 fl (7.4-10.4); Platelet Count 167 10x3/uL (150-450); RBC Distribution Width 12.7 % (11.5-14.5); Red Blood Cell (RBC) Count 4.24 10x6/uL (3.90-5.03); White Blood Cell (WBC) Count 9.9 10x3/uL (3.5-10.5)
[2022-10-10 11:57] LABS: Prothrombin Time 10.9 sec (9.5-12.1)
[2022-10-10 12:01] LABS: Anion Gap 12 mmol/L (10-20); BUN (Urea Nitrogen) 9 mg/dL (9.8-20.1); Calc. Creatinine Clearance 0 mL/min (70-130); Carbon Dioxide 31 mmol/L (23-31); Chloride 99 mmol/L (98-107); Estimated GFR 82; Glucose 157 mg/dL (83-110); Potassium 3.9 mmol/L (3.5-5.1); Sodium 138 mmol/L (136-145)
[2022-10-10 12:14] LABS: Cholesterol 104 mg/dl (< 200 Desired); HDL Cholesterol 35 mg/dL (>60 Neg Risk); LDL Cholesterol, Calculated 45 mg/dL; Triglycerides 122 mg/dL (Less than 150)
== END 2022-10-10 10:31 | disposition home or self-care (01) ==
LOC: LABBT 10:30
PROVIDERS: ATTEND Orthopaedic Surgery
DX: Z01.818 Encounter for other preprocedural examination (principal); M17.12 Unilateral primary osteoarthritis, left knee
CPT/HCPCS: 80048; 80061; 85025; 85610; 87081; 93005; 93010

== ENCOUNTER 2022-10-14 06:44 | Observation (INO) | payer MEDICARE ==
[2022-10-13 12:09] VITALS: BMI 31.1
[2022-10-14] MEDS ORDERED: Tranexamic Acid 1,000 MG/10 ML VIAL ONE (07:55)
[2022-10-14] MEDS ORDERED: Vancomycin 1 GM/200 ML (FROZEN) BAG ONE (07:55)
[2022-10-14] MEDS ORDERED: Sodium Chloride 0.9% 200 ML ONE (07:55)
[2022-10-14] MEDS ORDERED: CEFAZOLIN 2 GM VIAL ONE (07:55)
[2022-10-14] MEDS ORDERED: Ropivacaine 0.5% HCl/PF (150 MG/30 ML VIAL) ONE (08:01)
[2022-10-14] MEDS ORDERED: Midazolam HCl 2 mg/2 ml Vial ONE (08:01)
[2022-10-14] MEDS ORDERED: FENTANYL 50 MCG/ML 1 ML VIAL ONE ×2 (08:01→15:11)
[2022-10-14 08:39] LABS: SARS-CoV-2 NAA Rapid Test Not Detected (NotDetected)
[2022-10-14] MEDS ORDERED: diphenhydrAMINE 25 MG CAP PO PRN (08:51)
[2022-10-14] MEDS ORDERED: Acetaminophen 325 MG TAB PO PRN (08:51)
[2022-10-14] MEDS ORDERED: Ondansetron PF 4 MG/2 ML Vial IVP PRN ×2 (08:51→11:00)
[2022-10-14] MEDS ORDERED: Promethazine HCl 25 MG/ML VIAL IM PRN ×2 (08:51→11:00)
[2022-10-14] MEDS ORDERED: HYDROcodone/Acetaminophen 10/325 mg Tablet PO PRN ×3 (08:51→11:00)
[2022-10-14] MEDS ORDERED: Zolpidem Tartrate 5 MG TAB PO PRN ×2 (08:51→11:00)
[2022-10-14] MEDS ORDERED: Albuterol 200 PUFF (6.7GM INHALER) INH PRN (08:52)
[2022-10-14] MEDS ORDERED: PROPOFOL 200 MG/20 ML VIAL ONE (09:27)
[2022-10-14] MEDS ORDERED: Ketorolac Tromethamine 30 MG/ML VIAL ONE (09:27)
[2022-10-14] MEDS ORDERED: Dexamethasone 20 MG/5 ML VIAL ONE (09:27)
[2022-10-14] MEDS ORDERED: Ondansetron PF 4 MG/2 ML Vial ONE (09:27)
[2022-10-14] MEDS ORDERED: fentaNYL PF 100 MCG/2 ML SYRINGE ONE ×3 (09:31→11:24)
[2022-10-14] MEDS ORDERED: Ropivacaine 0.2% 550 ML 550 ML NERVE BLCK SCH (10:45)
[2022-10-14] MEDS ORDERED: Fentanyl 100 MCG/2 ML VIAL IV PRN (10:57)
[2022-10-14] MEDS ORDERED: traMADol HCl 50 MG TAB PO PRN ×2 (11:00)
[2022-10-14] MEDS: Morphine ER 30 MG TAB PO SCH ×2 (11:20→20:27)
[2022-10-14] MEDS: Gabapentin 300 MG CAP PO SCH ×3 (11:20→20:25)
[2022-10-14] MEDS: Cyclobenzaprine 10 MG TAB PO SCH ×3 (11:21→20:24)
[2022-10-14] MEDS: Alogliptin 25 MG TAB PO SCH (11:22)
[2022-10-14] MEDS ORDERED: Gabapentin 300 MG CAP ONE (11:40)
[2022-10-14] MEDS: Sodium Chloride 0.9% 1,000 ML IV SCH ×2 (11:55→19:23)
[2022-10-14] MEDS ORDERED: HYDROmorphone 0.5 MG/0.5 ML SYRINGE ONE ×3 (11:58→13:02)
[2022-10-14] MEDS ORDERED: Aspirin Chewable 81 MG TAB ONE (13:11)
[2022-10-14] MEDS: Aspirin 81 mg Enteric Coated Tablet PO SCH ×3 (13:13→20:23)
[2022-10-14] MEDS ORDERED: Aspirin 81 mg Enteric Coated Tablet ONE (13:15)
[2022-10-14] MEDS ORDERED: Ketorolac Tromethamine 30 MG/ML VIAL IVP SCH (14:00)
[2022-10-14] MEDS: Loratadine 10 MG TAB PO SCH (16:39)
[2022-10-14] MEDS: Calcium Carbonate 500 MG TAB PO SCH (16:39)
[2022-10-14] MEDS: Cholecalciferol 1,000 UNITS (25 MCG) TAB PO SCH (16:39)
[2022-10-14] MEDS: Carvedilol 3.125 MG TAB PO SCH (17:42)
[2022-10-14] MEDS: CEFAZOLIN 2 GM in Sodium Chloride 0.9% 100 ML IVPB SCH ×2 (17:42→22:29)
[2022-10-14] MEDS: HYDROcodone/Acetaminophen 10/325 mg Tablet PO PRN ×2 (17:43→22:28)
[2022-10-14] MEDS ORDERED: Atorvastatin Calcium 10 MG TAB PO SCH (21:00)
[2022-10-15] MEDS: HYDROcodone/Acetaminophen 10/325 mg Tablet PO PRN ×3 (03:35→11:46)
[2022-10-15] MEDS: Sodium Chloride 0.9% 1,000 ML IV SCH (04:27)
[2022-10-15] MEDS ORDERED: FENTANYL 50 MCG/ML 1 ML VIAL IV PRN (05:19)
[2022-10-15] MEDS ORDERED: Levothyroxine Sodium 50 MCG TAB PO SCH (06:00)
[2022-10-15 06:43] LABS: Hemoglobin 10.5 g/dL (12.0-16.0); Mean Corpuscular HGB CONC 34.7 g/dL (32.0-36.0); Mean Corpuscular Hemoglobin 32.2 pg (27.0-31.0); Mean Corpuscular Volume 92.8 fl (78.0-98.0); Mean Platelet Volume 7.7 fL (7.4-10.4); Platelet Count 156 10x3/uL (130-400); RBC Distribution Width 11.9 % (11.5-14.5); Red Blood Cell (RBC) Count 3.28 mill/uL (4.20-5.40); White Blood Cell (WBC) Count 13.9 10x3/uL (4.8-10.8)
[2022-10-15] MEDS ORDERED: Ferrous Gluconate 324 MG TAB PO SCH (08:00)
[2022-10-15] MEDS ORDERED: Senokot S 8.6-50 MG TAB PO SCH (09:00)
[2022-10-15] MEDS ORDERED: Multivitamin W/ Minerals 1 TAB PO SCH (09:00)
[2022-10-15] MEDS: Aspirin 81 mg Enteric Coated Tablet PO SCH (09:10)
[2022-10-15] MEDS: Alogliptin 25 MG TAB PO SCH (09:10)
[2022-10-15] MEDS: Cyclobenzaprine 10 MG TAB PO SCH (09:11)
[2022-10-15] MEDS: Gabapentin 300 MG CAP PO SCH ×2 (09:12→11:45)
[2022-10-15] MEDS: Morphine ER 30 MG TAB PO SCH (09:12)
[2022-10-15] MEDS: Calcium Carbonate 500 MG TAB PO SCH (09:12)
[2022-10-15] MEDS: Loratadine 10 MG TAB PO SCH (09:14)
[2022-10-15] MEDS: Cholecalciferol 1,000 UNITS (25 MCG) TAB PO SCH (09:14)
[2022-10-15] MEDS: Carvedilol 3.125 MG TAB PO SCH (09:14)
[2022-10-15 12:26] VITALS: BP 129/74; TEMP 97.8
== END 2022-10-15 15:12 | disposition home or self-care (01) ==
LOC: SDC 06:44 → SJJU 08:55
PROVIDERS: ADMIT Orthopaedic Surgery; ATTEND Orthopaedic Surgery
PROC: 0SRD0J9 Replacement of Left Knee Joint with Synthetic Substitute, Cemented, Open Approach (ICD-10-PCS; principal; 2022-10-14)
DX: M17.0 Bilateral primary osteoarthritis of knee (principal); E03.9 Hypothyroidism, unspecified; E11.9 Type 2 diabetes mellitus without complications; M35.00 Sjogren syndrome, unspecified; I25.2 Old myocardial infarction; Z79.02 Long term (current) use of antithrombotics/antiplatelets; Z79.84 Long term (current) use of oral hypoglycemic drugs; Z79.890 Hormone replacement therapy; Z79.891 Long term (current) use of opiate analgesic; Z79.899 Other long term (current) drug therapy; Z88.1 Allergy status to other antibiotic agents; Z88.2 Allergy status to sulfonamides; Z88.6 Allergy status to analgesic agent; Z88.8 Allergy status to other drugs, medicaments and biological substances; Z91.02 Food additives allergy status; Z91.048 Other nonmedicinal substance allergy status; Z20.822 Contact with and (suspected) exposure to COVID-19
CPT/HCPCS: 20985; 27447; 73560; 85027; 96374; 96375; 96376; 97110 ×2; 97116 ×2; 97530; A4306; C1713; C1776; G0378 ×2; J3010 ×2; J3370; U0002; 36415; J1100; J1170; J1885; J2250; J2405; J2704; J2795; J3490